=== PATIENT | female | born 1985 | race Two or more races ===

== ENCOUNTER 2017-06-04 11:19 | Emergency (ER) | payer SELFPAY ==
[~2017-06-04] VITALS: Ht 162.6 cm; Wt 96.1 kg
[2017-06-04 14:36] VITALS: BP 123/91
[2017-06-04 14:44] LABS: HCG UR OBC PASS
[2017-06-04 15:10] LABS: ASPARTATE AMINO TRANSFERASE 17 U/L (15-37); BLOOD UREA NITROGEN 6 mg/dL (7-18)
[2017-06-04] MEDS ORDERED: CEFTRIAXONE 250 MG IM ONE (17:00)
[2017-06-04] MEDS ORDERED: AZITHROMYCIN 500 MG TABLET PO ONE (17:00)
[2017-06-04] MEDS ORDERED: CEFTRIAXONE 1,000 MG ONE (17:10)
[2017-06-04] MEDS ORDERED: AZITHROMYCIN 500 MG TABLET ONE (17:10)
[2017-06-04] MEDS ORDERED: LIDOCAINE 1%, 20ML ONE (17:11)
== END 2017-06-04 17:40 | disposition home or self-care (01) ==
LOC: ED 15:28
DX: N76.0 Acute vaginitis (principal); N30.90 Cystitis, unspecified without hematuria; E66.9 Obesity, unspecified; E11.9 Type 2 diabetes mellitus without complications
CPT/HCPCS: 36415; 80053; 81001; 81025; 85025; 87086; 87210; 87491; 87591; 87808; 96372; 99284; J0696